=== PATIENT | male | born 2000 | race Hispanic/Latino ===

== ENCOUNTER 2018-05-21 10:55 | Outpatient (CLI) | payer OTHER | END 2018-05-21 10:56 | disposition home or self-care (01) | LOC: BICULT 10:55 | PROVIDERS: ATTEND Family Medicine | DX: R74.0 Nonspecific elevation of levels of transaminase and lactic acid dehydrogenase [LDH] (principal); K76.0 Fatty (change of) liver, not elsewhere classified | CPT/HCPCS: 76705 ==

== ENCOUNTER 2018-12-08 08:22 | Outpatient (CLI) | payer OTHER ==
--- NOTE | 2018-12-08 13:30 | NM ---
NUCLEAR MEDICINE HIDA SCAN: INDICATION: Unspecified abdominal pain. RADIOPHARMACEUTICAL: 5.2 mCi Technetium 99m mebrofenin IV. FINDINGS: There is homogeneous radiotracer distribution throughout the liver. The gallbladder is visualized pr ior to 10 minutes of imaging. There is also bowel activity. Subsequently, gallbladder ejection frac tion is measured. Calculated gallbladder ejection fraction is approximately 40%. IMPRESSION: 1. Visualization of the gallbladder includes cystic duct obstruction. 2. Borderline gallbladder ejection fraction of 40%. Correlate clinically. POS: PING
== END 2018-12-08 08:23 | disposition home or self-care (01) ==
LOC: NM 08:22
PROVIDERS: ATTEND Internal Medicine Gastroenterology
DX: R10.9 Unspecified abdominal pain (principal); K82.0 Obstruction of gallbladder; R94.8 Abnormal results of function studies of other organs and systems
CPT/HCPCS: 78227; A9537

== ENCOUNTER 2019-01-09 07:06 | Day surgery (SDC) | payer OTHER ==
[2019-01-08 09:39] VITALS: BMI 38.4
--- NOTE | 2019-01-08 12:21 | HP ---
HISTORY OF PRESENT ILLNESS: This is a 18-year-old Latin-Micron[place] male with abdominal pain over the last several months. The patient had seen before and had abdominal sonogram. The sonogram shows fatty liver, but no gallstones. The patient came to see me because of abdominal pain which is over upper abdomen including epigastric area . He had a HIDA scan which came back negative. The patient complains of abdominal pain. The pain is mostly postprandial and is over the upper abdomen. The patient comes to me for EGD because of the above reason. ALLERGIES: NONE. SOCIAL HISTORY: The patient does not smoke or drink alcohol. MEDICAL ILLNESS: 1. Fatty liver. 2. Obesity. PHYSICAL EXAMINATION: GENERAL: He is obese, appears comfortable. VITAL SIGNS: Pulse is 70, blood pressure 120/70. HEENT: Conjunctivae clear. CARDIOVASCULAR: First and second heart sounds heard. LUNGS: Clear to auscultation. ABDOMEN: Soft. No organomegaly. Abdomen is tender over the epigastric area right upper quadrant. There is no rebound or guarding. No organomegaly. ADMITTING DIAGNOSIS: A 18-year-old Latin-Micronesian with abdominal pain which is persistent. He had a negative HIDA scan and negative abdominal sonogram. PLAN: EGD today. Job ID: [id number]
[2019-01-09] MEDS ORDERED: Ketamine 50 MG/ML (10ML VIAL) ONE (10:44)
--- NOTE | 2019-01-09 12:50 | OP ---
DATE OF PROCEDURE: 01/09/2019 OPERATIVE PROCEDURE: Esophagogastroduodenoscopy with biopsy. PREOPERATIVE DIAGNOSES: Chronic abdominal pain, postprandial. The patient had negative abdominal sonogram and negative HIDA scan. POSTOPERATIVE DIAGNOSES: 1. Normal esophagus. 2. Mild gastritis over the gastric antrum with a polyp with depressed area. 3. Normal duodenum. DESCRIPTION OF PROCEDURE: The patient was placed on his left lateral position and was given sedation by Anesthesia Department. A Pentax video gastroscope under direct vision passed down the oropharynx, past the GE junction into the stomach, and subsequently into the descending duodenum. The esophageal mucosa appeared normal throughout. In the GE junction, no pathology. In the fundus and cardia, no pathology. In the gastric body, no pathology. The gastric antrum shows some mild gastritis. There is a polyp with a central depression. This was biopsied. In the duodenal bulb and descending duodenum, no pathology. The stomach was decompressed and the scope removed. DISCHARGE PLANNING: This is a 18-year-old male with persistent abdominal pain over the last several months. He had abdominal sonogram, which is negative for pathology. A HIDA scan was normal. The patient came in for EGD and underwent EGD and biopsy. There was a polyp with the area of depression over the gastric antrum. He also has some mild gastritis. DISCHARGE RECOMMENDATIONS: 1. He is advised to call me if he develops any abdominal pain, hematochezia. 2. We will await the gastric biopsy and decide further treatment. Job ID: [id number]
[2019-01-09] MEDS ORDERED: PROPOFOL 200 MG/20 ML VIAL ONE (16:35)
== END 2019-01-09 12:18 | disposition home or self-care (01) ==
LOC: SDC 07:06
PROVIDERS: ATTEND Internal Medicine Gastroenterology
PROC: 0DB78ZX Excision of Stomach, Pylorus, Via Natural or Artificial Opening Endoscopic, Diagnostic (ICD-10-PCS; principal; 2019-01-09)
DX: K31.89 Other diseases of stomach and duodenum (principal); K31.7 Polyp of stomach and duodenum; K29.70 Gastritis, unspecified, without bleeding; K76.0 Fatty (change of) liver, not elsewhere classified; E66.9 Obesity, unspecified
CPT/HCPCS: 88305; 88312; J2704

== ENCOUNTER 2021-07-18 09:42 | Outpatient (CLI) | payer OTHER | END 2021-07-18 09:43 | disposition home or self-care (01) | LOC: ULT 09:42 | PROVIDERS: ATTEND Family Medicine | DX: K75.81 Nonalcoholic steatohepatitis (NASH) (principal); K76.0 Fatty (change of) liver, not elsewhere classified; R16.1 Splenomegaly, not elsewhere classified | CPT/HCPCS: 76700 ==

== ENCOUNTER 2023-07-26 16:09 | Emergency (ER) | payer OTHER, SELFPAY ==
[2023-07-26] MEDS ORDERED: Rabies Vaccine Human 2.5 UNITS VIAL ONE (18:03)
[2023-07-26] MEDS ORDERED: Rabies Immune Globulin/PF 300 UNITS/ML VIAL IM SCH (18:15)
== END 2023-07-26 19:15 | disposition home or self-care (01) ==
LOC: ERS 16:09
DX: S61.052A Open bite of left thumb without damage to nail, initial encounter (principal); W54.0XXA Bitten by dog, initial encounter
CPT/HCPCS: 90375; 90471; 90675; 96372; 99283

== ENCOUNTER → 2023-07-29 | Day surgery (SDC) | payer OTHER, SELFPAY ==
[~2023-07-29] MED LIST: Rabies Vaccine Human 2.5 UNITS VIAL ONE
== END ==
LOC: ER/OP 14:28
PROVIDERS: ATTEND Radiology Vascular & Interventional Radiology
DX: Z23 Encounter for immunization (principal)
CPT/HCPCS: 90471; 90675